=== PATIENT | female | born 1950 ===

== ENCOUNTER 2021-08-01 15:44 | Inpatient (IN) | payer MEDICARE ==
[2021-08-01] MEDS ORDERED: Midazolam HCl 2 mg/2 ml Vial ONE (15:58)
[2021-08-01] MEDS ORDERED: Rocuronium Bromide 10 MG/ML (10ML VIAL) ONE (15:59)
[2021-08-01] MEDS ORDERED: Norepinephrine 8 MG/0.9% NS 250 ML ONE (16:21)
[2021-08-01] MEDS ORDERED: Cefepime 2 GM VIAL ONE (16:43)
[2021-08-01] MEDS ORDERED: Vancomycin 1 GM/200 ML BAG ONE (16:43)
[2021-08-01 16:48] LABS: Analyzer IN Cardio ER; Base Excess (BEa) -23.5 mEq/L (-2.0 to +3.0); Calcium, Ionized (arterial) 1.14 mmol/L (1.12-1.30); Carboxyhemoglobin (COHb) 0.2 gm% (0.0-3.0); Hemoglobin (Hb) 10.5 g/dL (12.0-16.0); O2 Tension (PaO2), arterial 103.7 mmHg (> 80.0); Potassium - ABG Lab 4.91 mmol/L (3.70-5.30)
[2021-08-01 16:53] LABS: CO2 Tension 23.8 mmHg (35.0-45.0); Puncture Site LBA; pH, Arterial 7.02 (7.35-7.45)
[2021-08-01 16:53] LABS: #Lymphocytes 0.7 thou/uL (1.20-3.40); #Monocytes 0.6 thou/uL (0.11-0.59); #Neutrophils 7.6 thou/uL (1.40-6.50); %Eosinophils 0.1 % (0.0-10.0); %Lymphocytes 8.4 % (21.0-51.0); %Monocytes 6.3 % (0.0-10.0); %Neutrophils 85.2 % (42.0-75.0); Hemoglobin 11.1 g/dL (12.0-16.0); Mean Corpuscular HGB CONC 33.8 g/dL (32.0-36.0); Mean Corpuscular Hemoglobin 38.1 pg (27.0-31.0); Platelet Count 205 thou/uL (130-400); RBC Distribution Width 12.1 % (11.5-14.5); Red Blood Cell (RBC) Count 2.92 mill/uL (4.20-5.40); White Blood Cell (WBC) Count 8.9 thou/uL (4.8-10.8)
[2021-08-01] MEDS ORDERED: Dexamethasone 4 mg/ml Vial ONE (16:56)
[2021-08-01] MEDS ORDERED: Sodium Bicarb 50 MEQ/50 ML Abboject 8.4% SYRINGE ONE (16:56)
[2021-08-01] MEDS ORDERED: Propofol 1,000 MG/100 ML VIAL IV ONE (17:00)
[2021-08-01 17:09] LABS: MDiff Complete? YES; Macrocytosis SLIGHT = 6-15 cells (100X) (0-5/hpf); Platelet Morphology Comment Appears Adequate
[2021-08-01 17:48] LABS: Bacteria/HPF 1+ HPF (None Seen); Bilirubin Negative (Negative); Blood, Urine Negative (Negative); Clarity Cloudy (Clear); Glucose, Urine (Dipstick) Normal (Negative); Ketone, Urine Negative (Negative); Leukocyte Negative Leu/uL (Negative); Nitrite Negative (Negative); Protein, Urine (Dipstick) 50 mg/dL (Neg-Trace); RBC/HPF 0-3 HPF (0-3); Specific Gravity, Urine 1.022 (1.002-1.036); Squamous Epithelial 0-3 HPF (0-3); Urobilinogen Normal mg/dL (Less than 2)
[2021-08-01] MEDS ORDERED: Diltiazem 125 MG/25 ML ONE (18:30)
[2021-08-01 19:46] LABS: ALT (SGPT) 14 U/L (8-55); AST (SGOT) 26 U/L (5-34); Albumin 3.1 g/dL (3.4-4.8); Alkaline Phosphatase 69 U/L (40-110); BUN (Urea Nitrogen) 114 mg/dL (9.8-20.1); Bilirubin, Total 0.4 mg/dL (0.2-1.2); Calc. Creatinine Clearance 0 mL/min (70-130); Calcium 8.2 mg/dL (7.8-10.44); Chloride 124 mmol/L (98-107); Globulin 3.3 g/dL (2.4-3.5); Glucose 133 mg/dL (80-115); Potassium 5.3 mmol/L (3.5-5.1); Protein, Total 6.4 g/dL (5.8-8.1); Sodium 146 mmol/L (136-145)
[2021-08-01 19:52] LABS: Carbon Dioxide Less than 8 mmol/L (23-31)
[2021-08-01 20:09] LABS: Lactic Acid 4.2 mmol/L (0.5-2.2)
[2021-08-01 20:11] LABS: Troponin I 0.145 ng/mL (< 0.028)
[2021-08-01] MEDS ORDERED: Sodium Chloride 0.9% 500 ML IV SCH (20:45)
[2021-08-01] MEDS ORDERED: Propofol 1,000 MG/100 ML VIAL IV PRN (20:45)
[2021-08-01] MEDS ORDERED: Sodium Bicarb 50 MEQ/50 ML Abboject 8.4% SYRINGE IVP SCH (20:45)
[2021-08-01] MEDS ORDERED: Diltiazem HCl 125 MG, Admixture Fee 1 EACH in Sodium Chloride 0.9% 100 ML IVPB SCH (20:45)
[2021-08-01] MEDS ORDERED: Sodium Bicarb 50 MEQ/50 ML VIAL IVP SCH ×2 (20:45→21:15)
[2021-08-01] MEDS ORDERED: Sodium Bicarbonate 150 MEQ in Dextrose 5% in Water 1,000 ML IV SCH (20:45)
[2021-08-01] MEDS ORDERED: Norepinephrine 8 MG/0.9% NS 250 ML IVPB SCH (20:45)
[2021-08-01 20:47] LABS: Actual Bicarbonate (HCO3a) 6.8 mEq/L (22-28); Analyzer IN Cardio ER; Base Excess (BEa) -22.5 mEq/L (-2.0 to +3.0); Calcium, Ionized (arterial) 1.12 mmol/L (1.12-1.30); Carboxyhemoglobin (COHb) 0.4 gm% (0.0-3.0); Hemoglobin (Hb) 11.6 g/dL (12.0-16.0); O2 Tension (PaO2), arterial 64.8 mmHg (> 80.0); Potassium - ABG Lab 5.55 mmol/L (3.70-5.30)
[2021-08-01 20:53] LABS: pH, Arterial 7.04 (7.35-7.45)
[2021-08-01 20:54] LABS: CO2 Tension 25.8 mmHg (35.0-45.0)
[2021-08-01 20:56] LABS: Puncture Site RRA
[2021-08-01] MEDS ORDERED: Sodium Bicarb 50 MEQ/50 ML VIAL ONE (21:10)
[2021-08-01] MEDS: Amiodarone 450 MG, Admixture Fee 1 EACH in Dextrose 5% in Water 250 ML IVPB SCH (21:24)
[2021-08-01] MEDS: Fentanyl CADD 100 ML IV SCH (21:27)
[2021-08-01] MEDS ORDERED: Amiodarone 150 MG, Admixture Fee 1 EACH in Dextrose 5% in Water 100 ML IVPB SCH (21:30)
[2021-08-01] MEDS ORDERED: Propofol BOLUS 1,000 MG/100 ML VIAL IV PRN (21:30)
[2021-08-01] MEDS ORDERED: DISCONTINUE PREVIOUS NARCOTIC PAIN MEDICATIONS AND BENZODIAZEPINES FS SCH (21:30)
[2021-08-01] MEDS ORDERED: Fentanyl BOLUS 250 ML IVPB PRN (21:30)
[2021-08-01] MEDS ORDERED: Sodium Chloride 0.9% 1,000 ML IV SCH (21:30)
[2021-08-01] MEDS ORDERED: Morphine 4 MG/ML VIAL SLOW IVP PRN (21:30)
[2021-08-01] MEDS: Sodium Chloride 0.9% 1,000 ML IV SCH (21:58)
[2021-08-01] MEDS ORDERED: Acetaminophen 325 MG TAB PO PRN (22:09)
[2021-08-01] MEDS ORDERED: Ondansetron ODT 4 MG TAB PO PRN (22:09)
[2021-08-01] MEDS ORDERED: Ondansetron PF 4 MG/2 ML Vial IVP PRN (22:09)
[2021-08-01] MEDS: Vasopressin 20 UNIT, Admixture Fee 1 EACH in Sodium Chloride 0.9% 50 ML IV SCH (22:09)
[2021-08-01] MEDS ORDERED: Acetaminophen 650 MG Suppository PR PRN (22:09)
[2021-08-01 22:25] LABS: Lactic Acid 4.9 mmol/L (0.5-2.2)
[2021-08-01 22:26] LABS: Anion Gap 22 mmol/L (10-20); BUN (Urea Nitrogen) 96 mg/dL (9.8-20.1); Calc. Creatinine Clearance 0 mL/min (70-130); Calcium 6.7 mg/dL (7.8-10.44); Carbon Dioxide 14 mmol/L (23-31); Chloride 121 mmol/L (98-107); Glucose 338 mg/dL (80-115); Potassium 4.3 mmol/L (3.5-5.1); Sodium 153 mmol/L (136-145)
[2021-08-01 22:44] LABS: Troponin I 0.165 ng/mL (< 0.028)
[2021-08-02] MEDS ORDERED: Heparin 10,000 UNITS/ 10 ML VIAL SLOW IVP SCH (00:30)
[2021-08-02] MEDS ORDERED: Heparin 25,000 units/D5W 500 ML IVPB SCH (00:30)
[2021-08-02 01:14] LABS: Hemoglobin 10.1 g/dL (12.0-16.0); Platelet Count 192 thou/uL (130-400)
[2021-08-02] MEDS ORDERED: HumaLOG 300 UNITS/3 ML VIAL SC PRN ×2 (01:37)
[2021-08-02] MEDS ORDERED: Dextrose 5% in Water 1,000 ML IV PRN (01:37)
[2021-08-02] MEDS: Lorazepam 2 MG/ML VIAL SLOW IVP PRN ×6 (01:40→22:44)
[2021-08-02 01:43] LABS: Lactic Acid 5.5 mmol/L (0.5-2.2)
[2021-08-02] MEDS ORDERED: Dextrose 5% in Water 1,000 ML IV SCH (01:45)
[2021-08-02] MEDS ORDERED: Sodium Bicarbonate 150 MEQ in Dextrose 5% in Water 1,000 ML IV SCH (01:45)
[2021-08-02] MEDS ORDERED: Sodium Bicarbonate 150 MEQ in Sterile Water Injection 1,000 ML IV SCH (02:15)
[2021-08-02] MEDS ORDERED: Pharmacy to Dose : CEFEPIME IVPB PRN (02:54)
[2021-08-02] MEDS ORDERED: Vancomycin HCl 500 MG in Sodium Chloride 0.9% 100 ML IVPB SCH ×2 (03:00→23:59)
[2021-08-02] MEDS: Norepinephrine 16 MG in Dextrose 5% in Water 234 ML IVPB PRN (03:08)
[2021-08-02] MEDS ORDERED: VANCOMYCIN 1.25 GM/250 ML BAG 1.25 GM in Premix Bag 1 BAG IVPB SCH (04:00)
[2021-08-02] MEDS: Amiodarone 450 MG, Admixture Fee 1 EACH in Dextrose 5% in Water 250 ML IVPB SCH ×2 (04:52→14:02)
[2021-08-02] MEDS: Sodium Chloride 0.9% 1,000 ML IV SCH (04:52)
[2021-08-02] MEDS: Vasopressin 20 UNIT, Admixture Fee 1 EACH in Sodium Chloride 0.9% 50 ML IV SCH ×2 (04:52→14:02)
[2021-08-02 05:20] LABS: Anion Gap 21 mmol/L (10-20); BUN (Urea Nitrogen) 82 mg/dL (9.8-20.1); Calc. Creatinine Clearance 19 mL/min (70-130); Calcium 6.7 mg/dL (7.8-10.44); Carbon Dioxide 19 mmol/L (23-31); Chloride 112 mmol/L (98-107); Glucose 537 mg/dL (80-115); Potassium 3.2 mmol/L (3.5-5.1); Sodium 149 mmol/L (136-145)
[2021-08-02 05:42] LABS: Lactic Acid 3.6 mmol/L (0.5-2.2)
[2021-08-02 06:04] LABS: Band 13 % (5-11); Hemoglobin 9.9 g/dL (12.0-16.0); Lymphocytes 9 % (21-51); MDiff Complete? YES; Macrocytosis SLIGHT = 6-15 cells (100X) (0-5/hpf); Mean Corpuscular HGB CONC 34.2 g/dL (32.0-36.0); Mean Corpuscular Hemoglobin 37.5 pg (27.0-31.0); Mean Platelet Volume 9.3 fL (7.4-10.4); Monocytes 3 % (0-10); Neutrophil 75 % (42-75); Platelet Count 189 thou/uL (130-400); RBC Distribution Width 12.1 % (11.5-14.5); Red Blood Cell (RBC) Count 2.63 mill/uL (4.20-5.40); White Blood Cell (WBC) Count 7.6 thou/uL (4.8-10.8)
[2021-08-02] MEDS: HumaLOG 300 UNITS/3 ML VIAL SC PRN ×3 (06:38→16:09)
[2021-08-02 07:50] LABS: Actual Bicarbonate (HCO3a) 23.5 mEq/L (22-28); Base Excess (BEa) 1.7 mEq/L (-2.0 to +3.0); CO2 Tension 27.1 mmHg (35.0-45.0); Calcium, Ionized (arterial) 0.91 mmol/L (1.12-1.30); Carboxyhemoglobin (COHb) 0.8 gm% (0.0-3.0); Hemoglobin (Hb) 9.4 g/dL (12.0-16.0); Potassium - ABG Lab 2.88 mmol/L (3.70-5.30)
[2021-08-02 07:59] LABS: ALV-art Gradient 458.975 mmHg (0-20); O2 Tension (PaO2), arterial 41.9 mmHg (> 80.0); pH, Arterial 7.56 (7.35-7.45)
[2021-08-02 08:22] LABS: PTT Greater than 250.0 sec (22.9-36.1)
[2021-08-02] MEDS ORDERED: Heparin 5,000 UNITS/ML VIAL SC SCH ×2 (09:00→15:00)
[2021-08-02] MEDS ORDERED: FLU VACC QS2021-22(65YR UP)/PF 240 MCG/0.7 ML SYRINGE IM ONE (09:00)
[2021-08-02] MEDS ORDERED: Lantus 1000 UNITS/10 ML VIAL SC SCH (09:00)
[2021-08-02] MEDS ORDERED: Enoxaparin Sodium 30 MG/0.3 ML SYRINGE SC SCH (09:00)
[2021-08-02] MEDS: Sodium Chloride 0.45% 1,000 ML IV SCH (10:19)
[2021-08-02] MEDS: Vecuronium 10 MG VIAL IV PRN ×3 (10:20→22:44)
[2021-08-02] MEDS: Ascorbic Acid 500 mg Chewable Tablet PO SCH (10:21)
[2021-08-02] MEDS: Cholecalciferol (Vitamin D3) 400 UNITS TAB PO SCH (10:21)
[2021-08-02] MEDS: Dexamethasone 10 MG/ML VIAL SLOW IVP SCH (10:21)
[2021-08-02] MEDS: Zinc Sulfate 220 MG CAP PO SCH (10:21)
[2021-08-02] MEDS: Pantoprazole 40 MG VIAL IVP SCH (10:21)
[2021-08-02 11:47] LABS: SARS-CoV-2 PCR by NAA DETECTED (NotDetected)
[2021-08-02] MEDS ORDERED: Potassium Chloride 40 MEQ in Premix Bag 1 BAG IVPB SCH (12:30)
[2021-08-02] MEDS: Lantus 1000 UNITS/10 ML VIAL SC SCH ×2 (13:54→20:59)
[2021-08-02] MEDS: Cefepime 1 GM in Sodium Chloride 0.9% 100 ML IVPB SCH (16:19)
[2021-08-02] MEDS: Fentanyl CADD 100 ML IV SCH (18:01)
[2021-08-02] MEDS ORDERED: Electrolyte Replacement Protocol 1 EACH FS SCH (19:30)
[2021-08-02] MEDS ORDERED: Enoxaparin Sodium 40 MG/0.4 ML SYRINGE SC SCH (21:00)
[2021-08-02] MEDS ORDERED: VANCOMYCIN IVPB SCH (22:00)
[2021-08-02 22:55] LABS: Vancomycin, Random 16.4 ug/mL (See Comment)
[2021-08-02 23:03] LABS: Anion Gap 17 mmol/L (10-20); BUN (Urea Nitrogen) 60 mg/dL (9.8-20.1); Calc. Creatinine Clearance 37 mL/min (70-130); Carbon Dioxide 24 mmol/L (23-31); Chloride 113 mmol/L (98-107); Glucose 132 mg/dL (80-115); Magnesium 1.4 mg/dL (1.6-2.6); Potassium 3.2 mmol/L (3.5-5.1); Sodium 151 mmol/L (136-145)
[2021-08-03] MEDS ORDERED: Potassium Bicarbonate/Cit Ac 20 MEQ TAB PER TUBE SCH (01:30)
[2021-08-03] MEDS ORDERED: Potassium Chloride 20 MEQ in Premix Bag 1 BAG IVPB SCH (01:30)
[2021-08-03] MEDS ORDERED: Magnesium Sulfate 4 GM in Sodium Chloride 0.9% 250 ML 250 ML IVPB SCH (01:45)
[2021-08-03] MEDS: Amiodarone 450 MG, Admixture Fee 1 EACH in Dextrose 5% in Water 250 ML IVPB SCH (02:30)
[2021-08-03] MEDS: Norepinephrine 16 MG in Dextrose 5% in Water 234 ML IVPB PRN (02:30)
[2021-08-03] MEDS ORDERED: Sterile Water 10 ML ONE (04:20)
[2021-08-03] MEDS ORDERED: Bacteriostatic Normal Saline 30 ML VIAL ONE (04:20)
[2021-08-03] MEDS: Vecuronium 10 MG VIAL IV PRN ×2 (04:23→14:12)
[2021-08-03] MEDS: Lorazepam 2 MG/ML VIAL SLOW IVP PRN ×3 (04:23→14:12)
[2021-08-03] MEDS: Sodium Chloride 0.45% 1,000 ML IV SCH (06:22)
[2021-08-03 06:30] LABS: Anion Gap 16 mmol/L (10-20); BUN (Urea Nitrogen) 52 mg/dL (9.8-20.1); Calc. Creatinine Clearance 44 mL/min (70-130); Calcium 6.9 mg/dL (7.8-10.44); Carbon Dioxide 24 mmol/L (23-31); Chloride 113 mmol/L (98-107); Glucose 141 mg/dL (80-115); Potassium 3.8 mmol/L (3.5-5.1); Sodium 149 mmol/L (136-145)
[2021-08-03] MEDS: Fentanyl CADD 100 ML IV SCH (07:04)
[2021-08-03 08:10] LABS: Actual Bicarbonate (HCO3a) 25.3 mEq/L (22-28); Base Excess (BEa) 5.3 mEq/L (-2.0 to +3.0); Calcium, Ionized (arterial) 0.98 mmol/L (1.12-1.30); Carboxyhemoglobin (COHb) 0.6 gm% (0.0-3.0); Hemoglobin (Hb) 9.6 g/dL (12.0-16.0); O2 Tension (PaO2), arterial 83.9 mmHg (> 80.0); Potassium - ABG Lab 3.64 mmol/L (3.70-5.30)
[2021-08-03 08:11] LABS: ALV-art Gradient 172.675 mmHg (0-20); CO2 Tension 22.9 mmHg (35.0-45.0); Puncture Site LRA; pH, Arterial 7.66 (7.35-7.45)
[2021-08-03] MEDS: Dexamethasone 10 MG/ML VIAL SLOW IVP SCH (08:59)
[2021-08-03] MEDS: Zinc Sulfate 220 MG CAP PO SCH (08:59)
[2021-08-03] MEDS: Ascorbic Acid 500 mg Chewable Tablet PO SCH (08:59)
[2021-08-03] MEDS: Pantoprazole 40 MG VIAL IVP SCH (08:59)
[2021-08-03] MEDS: Cholecalciferol (Vitamin D3) 400 UNITS TAB PO SCH (08:59)
[2021-08-03] MEDS: Lantus 1000 UNITS/10 ML VIAL SC SCH ×2 (09:00→22:36)
[2021-08-03 09:09] LABS: Magnesium 2.9 mg/dL (1.6-2.6)
[2021-08-03] MEDS: HumaLOG 300 UNITS/3 ML VIAL SC PRN ×2 (10:10→16:37)
[2021-08-03] MEDS: Cefepime 1 GM in Sodium Chloride 0.9% 100 ML IVPB SCH (16:18)
[2021-08-03] MEDS: Enoxaparin Sodium 40 MG/0.4 ML SYRINGE SC SCH (20:37)
[2021-08-03] MEDS: fentaNYL Citrate-0.9 % NaCl/PF 100 ML IVPB SCH (20:38)
[2021-08-03 23:10] LABS: Vancomycin, Random 12.8 ug/mL (See Comment)
[2021-08-04] MEDS: Vancomycin HCl 750 MG in Sodium Chloride 0.9% 250 ML 250 ML IVPB SCH (00:28)
[2021-08-04] MEDS: Sodium Chloride 0.45% 1,000 ML IV SCH ×2 (00:34→21:18)
[2021-08-04] MEDS: Propofol 1,000 MG/100 ML VIAL IV PRN ×2 (04:57→17:58)
[2021-08-04 05:39] LABS: Anion Gap 14 mmol/L (10-20); BUN (Urea Nitrogen) 50 mg/dL (9.8-20.1); Calc. Creatinine Clearance 57 mL/min (70-130); Calcium 7.4 mg/dL (7.8-10.44); Carbon Dioxide 25 mmol/L (23-31); Chloride 110 mmol/L (98-107); Glucose 156 mg/dL (80-115); Potassium 3.8 mmol/L (3.5-5.1); Sodium 145 mmol/L (136-145)
[2021-08-04 05:41] LABS: Band 20 % (5-11); Hemoglobin 9.2 g/dL (12.0-16.0); Lymphocytes 2 % (21-51); MDiff Complete? YES; Mean Corpuscular HGB CONC 32.8 g/dL (32.0-36.0); Mean Corpuscular Hemoglobin 37.3 pg (27.0-31.0); Mean Platelet Volume 9.9 fL (7.4-10.4); Monocytes 1 % (0-10); Neutrophil 77 % (42-75); Platelet Count 166 thou/uL (130-400); Platelet Morphology Comment Appears Adequate; Red Blood Cell (RBC) Count 2.48 mill/uL (4.20-5.40); White Blood Cell (WBC) Count 17.2 thou/uL (4.8-10.8)
[2021-08-04] MEDS: fentaNYL Citrate-0.9 % NaCl/PF 100 ML IVPB SCH ×2 (06:57→21:20)
[2021-08-04] MEDS ORDERED: Potassium Chloride 20 MEQ TAB PO SCH (08:15)
[2021-08-04] MEDS: Ascorbic Acid 500 mg Chewable Tablet PO SCH (08:37)
[2021-08-04] MEDS: Cholecalciferol (Vitamin D3) 400 UNITS TAB PO SCH (08:37)
[2021-08-04] MEDS: Cefepime 2 GM in Sodium Chloride 0.9% 100 ML IVPB SCH ×2 (08:37→21:18)
[2021-08-04] MEDS: Zinc Sulfate 220 MG CAP PO SCH (08:37)
[2021-08-04] MEDS: Amiodarone 200 MG TAB PO SCH (08:37)
[2021-08-04] MEDS: Dexamethasone 10 MG/ML VIAL SLOW IVP SCH (08:37)
[2021-08-04] MEDS: Enoxaparin Sodium 40 MG/0.4 ML SYRINGE SC SCH ×2 (08:38→21:19)
[2021-08-04] MEDS: Pantoprazole 40 MG VIAL IVP SCH (08:38)
[2021-08-04] MEDS: Lantus 1000 UNITS/10 ML VIAL SC SCH ×2 (08:39→21:23)
[2021-08-04] MEDS: Vecuronium 10 MG VIAL IV PRN (12:27)
[2021-08-04] MEDS: HumaLOG 300 UNITS/3 ML VIAL SC PRN (16:00)
[2021-08-05] MEDS: Vancomycin HCl 750 MG in Sodium Chloride 0.9% 250 ML 250 ML IVPB SCH (00:51)
[2021-08-05] MEDS: Propofol 1,000 MG/100 ML VIAL IV PRN ×4 (03:10→22:04)
[2021-08-05 05:51] LABS: Band 8 % (5-11); Hemoglobin 8.9 g/dL (12.0-16.0); Hypochromia SLIGHT = 6-15 cells (100X) (0-5/hpf); MDiff Complete? YES; Macrocytosis SLIGHT = 6-15 cells (100X) (0-5/hpf); Mean Corpuscular HGB CONC 32.3 g/dL (32.0-36.0); Mean Corpuscular Hemoglobin 37.2 pg (27.0-31.0); Mean Platelet Volume 10.1 fL (7.4-10.4); Monocytes 18 % (0-10); Neutrophil 73 % (42-75); Platelet Count 177 thou/uL (130-400); Platelet Morphology Comment Appears Adequate; RBC Distribution Width 12.3 % (11.5-14.5); Reactive Lymphocytes 1 % (0-10); Red Blood Cell (RBC) Count 2.39 mill/uL (4.20-5.40); White Blood Cell (WBC) Count 20.9 thou/uL (4.8-10.8)
[2021-08-05 06:02] LABS: Anion Gap 11 mmol/L (10-20); BUN (Urea Nitrogen) 41 mg/dL (9.8-20.1); CRP (Inflammatory) 1.05 mg/dL (= or < 0.5); Calc. Creatinine Clearance 70 mL/min (70-130); Calcium 7.6 mg/dL (7.8-10.44); Carbon Dioxide 26 mmol/L (23-31); Chloride 110 mmol/L (98-107); Glucose 123 mg/dL (80-115); Sodium 142 mmol/L (136-145)
[2021-08-05] MEDS: Dexamethasone 10 MG/ML VIAL SLOW IVP SCH (08:37)
[2021-08-05] MEDS: Cefepime 2 GM in Sodium Chloride 0.9% 100 ML IVPB SCH ×2 (08:37→21:28)
[2021-08-05] MEDS: Enoxaparin Sodium 40 MG/0.4 ML SYRINGE SC SCH ×2 (08:37→21:28)
[2021-08-05] MEDS: Cholecalciferol (Vitamin D3) 400 UNITS TAB PO SCH (08:38)
[2021-08-05] MEDS: Furosemide 40 MG/4 ML VIAL SLOW IVP SCH (08:38)
[2021-08-05] MEDS: Pantoprazole 40 MG VIAL IVP SCH (08:38)
[2021-08-05] MEDS: Zinc Sulfate 220 MG CAP PO SCH (08:38)
[2021-08-05] MEDS: Ascorbic Acid 500 mg Chewable Tablet PO SCH (08:38)
[2021-08-05] MEDS: Lantus 1000 UNITS/10 ML VIAL SC SCH ×2 (08:39→21:29)
[2021-08-05] MEDS: Amiodarone 200 MG TAB PO SCH (08:40)
[2021-08-05 09:55] LABS: Actual Bicarbonate (HCO3a) 26.7 mEq/L (22-28); Base Excess (BEa) 1.1 mEq/L (-2.0 to +3.0); CO2 Tension 47.3 mmHg (35.0-45.0); Calcium, Ionized (arterial) 1.15 mmol/L (1.12-1.30); Carboxyhemoglobin (COHb) 0.7 gm% (0.0-3.0); Hemoglobin (Hb) 9.2 g/dL (12.0-16.0); O2 Tension (PaO2), arterial 61.3 mmHg (> 80.0); Potassium - ABG Lab 4.88 mmol/L (3.70-5.30); pH, Arterial 7.37 (7.35-7.45)
[2021-08-05 09:59] LABS: ALV-art Gradient 236.075 mmHg (0-20); Puncture Site RRA
[2021-08-05] MEDS: Lorazepam 2 MG/ML VIAL SLOW IVP PRN ×2 (12:05→22:04)
[2021-08-05] MEDS: fentaNYL Citrate-0.9 % NaCl/PF 100 ML IVPB SCH (16:00)
[2021-08-05] MEDS: Sodium Chloride 0.45% 1,000 ML IV SCH (16:01)
[2021-08-05] MEDS: HumaLOG 300 UNITS/3 ML VIAL SC PRN (16:02)
[2021-08-05 23:38] LABS: Vancomycin, Trough 15.7 ug/mL
[2021-08-06 00:55] LABS: Platelet Count 167 thou/uL (130-400)
[2021-08-06] MEDS: Vancomycin HCl 750 MG in Sodium Chloride 0.9% 250 ML 250 ML IVPB SCH (01:04)
[2021-08-06 05:37] LABS: Band 3 % (5-11); Lymphocytes 4 % (21-51); MDiff Complete? YES; Mean Corpuscular HGB CONC 32.4 g/dL (32.0-36.0); Mean Corpuscular Hemoglobin 37.3 pg (27.0-31.0); Mean Platelet Volume 10.1 fL (7.4-10.4); Metamyelocyte 1 % (0-0); Monocytes 4 % (0-10); Neutrophil 88 % (42-75); Platelet Count 166 thou/uL (130-400); Platelet Morphology Comment Appears Adequate; RBC Distribution Width 12.2 % (11.5-14.5); White Blood Cell (WBC) Count 14.1 thou/uL (4.8-10.8)
[2021-08-06 05:49] LABS: Anion Gap 11 mmol/L (10-20); BUN (Urea Nitrogen) 34 mg/dL (9.8-20.1); Calc. Creatinine Clearance 73 mL/min (70-130); Calcium 7.9 mg/dL (7.8-10.44); Carbon Dioxide 28 mmol/L (23-31); Chloride 107 mmol/L (98-107); Glucose 125 mg/dL (80-115); Potassium 4.6 mmol/L (3.5-5.1); Sodium 141 mmol/L (136-145)
[2021-08-06] MEDS: Propofol 1,000 MG/100 ML VIAL IV PRN ×3 (06:39→23:48)
[2021-08-06 07:33] LABS: Actual Bicarbonate (HCO3a) 30.1 mEq/L (22-28); Base Excess (BEa) 3.5 mEq/L (-2.0 to +3.0); CO2 Tension 53.2 mmHg (35.0-45.0); Calcium, Ionized (arterial) 1.16 mmol/L (1.12-1.30); O2 Tension (PaO2), arterial 82.2 mmHg (> 80.0); Potassium - ABG Lab 4.75 mmol/L (3.70-5.30); pH, Arterial 7.37 (7.35-7.45)
[2021-08-06 07:41] LABS: Puncture Site RRA
[2021-08-06] MEDS: fentaNYL Citrate-0.9 % NaCl/PF 100 ML IVPB SCH (08:44)
[2021-08-06] MEDS: Enoxaparin Sodium 40 MG/0.4 ML SYRINGE SC SCH ×2 (08:47→20:19)
[2021-08-06] MEDS: Cefepime 2 GM in Sodium Chloride 0.9% 100 ML IVPB SCH ×2 (08:48→20:19)
[2021-08-06] MEDS: Pantoprazole 40 MG VIAL IVP SCH (08:53)
[2021-08-06] MEDS: Furosemide 40 MG/4 ML VIAL SLOW IVP SCH (08:54)
[2021-08-06] MEDS: Zinc Sulfate 220 MG CAP PO SCH (08:55)
[2021-08-06] MEDS: Amiodarone 200 MG TAB PO SCH (08:55)
[2021-08-06] MEDS: Ascorbic Acid 500 mg Chewable Tablet PO SCH (08:55)
[2021-08-06] MEDS: Cholecalciferol (Vitamin D3) 400 UNITS TAB PO SCH (08:56)
[2021-08-06] MEDS: Lantus 1000 UNITS/10 ML VIAL SC SCH ×2 (08:57→20:23)
[2021-08-06] MEDS ORDERED: Levothyroxine Sodium 75 MCG TAB PO SCH (09:00)
[2021-08-06] MEDS: Citalopram 10 MG TAB PER TUBE SCH (10:09)
[2021-08-06] MEDS: Dexamethasone 10 MG/ML VIAL SLOW IVP SCH (10:10)
[2021-08-06] MEDS: Sodium Chloride 0.45% 1,000 ML IV SCH (13:48)
[2021-08-07] MEDS: fentaNYL Citrate-0.9 % NaCl/PF 100 ML IVPB SCH ×2 (02:55→20:41)
[2021-08-07 04:03] LABS: Band 10 % (5-11); Hemoglobin 8.8 g/dL (12.0-16.0); Hypochromia SLIGHT = 6-15 cells (100X) (0-5/hpf); Lymphocytes 9 % (21-51); MDiff Complete? YES; Macrocytosis SLIGHT = 6-15 cells (100X) (0-5/hpf); Mean Corpuscular HGB CONC 32.3 g/dL (32.0-36.0); Mean Corpuscular Hemoglobin 37.3 pg (27.0-31.0); Mean Platelet Volume 10.1 fL (7.4-10.4); Monocytes 11 % (0-10); Neutrophil 70 % (42-75); Platelet Count 152 thou/uL (130-400); Platelet Morphology Comment Appears Adequate; RBC Distribution Width 11.9 % (11.5-14.5); Red Blood Cell (RBC) Count 2.37 mill/uL (4.20-5.40); White Blood Cell (WBC) Count 11.5 thou/uL (4.8-10.8)
[2021-08-07 04:16] LABS: Anion Gap 11 mmol/L (10-20); BUN (Urea Nitrogen) 34 mg/dL (9.8-20.1); Calc. Creatinine Clearance 72 mL/min (70-130); Calcium 8.2 mg/dL (7.8-10.44); Carbon Dioxide 31 mmol/L (23-31); Chloride 104 mmol/L (98-107); Glucose 93 mg/dL (80-115); Potassium 4.7 mmol/L (3.5-5.1); Sodium 141 mmol/L (136-145)
[2021-08-07] MEDS: Levothyroxine Sodium 75 MCG TAB PO SCH (06:03)
[2021-08-07] MEDS: Propofol 1,000 MG/100 ML VIAL IV PRN (07:59)
[2021-08-07] MEDS: Enoxaparin Sodium 40 MG/0.4 ML SYRINGE SC SCH ×2 (09:05→20:15)
[2021-08-07] MEDS: Cefepime 2 GM in Sodium Chloride 0.9% 100 ML IVPB SCH ×2 (09:07→20:15)
[2021-08-07] MEDS: Pantoprazole 40 MG VIAL IVP SCH (09:08)
[2021-08-07] MEDS ORDERED: Furosemide 20 MG/2 ML VIAL SLOW IVP SCH (09:15)
[2021-08-07] MEDS: Dexamethasone 10 MG/ML VIAL SLOW IVP SCH (09:15)
[2021-08-07] MEDS: Ascorbic Acid 500 mg Chewable Tablet PO SCH (09:19)
[2021-08-07] MEDS: Zinc Sulfate 220 MG CAP PO SCH (09:19)
[2021-08-07] MEDS: Amiodarone 200 MG TAB PO SCH (09:19)
[2021-08-07] MEDS: Citalopram 10 MG TAB PER TUBE SCH (09:19)
[2021-08-07] MEDS: Cholecalciferol (Vitamin D3) 400 UNITS TAB PO SCH (09:19)
[2021-08-07] MEDS: Lantus 1000 UNITS/10 ML VIAL SC SCH ×2 (09:20→20:32)
[2021-08-07] MEDS: Lorazepam 2 MG/ML VIAL SLOW IVP PRN ×2 (11:50→18:59)
[2021-08-07] MEDS: Sodium Chloride 0.45% 1,000 ML IV SCH (13:10)
[2021-08-08 00:33] LABS: Hemoglobin 8.1 g/dL (12.0-16.0); Platelet Count 140 thou/uL (130-400)
[2021-08-08] MEDS: Propofol 1,000 MG/100 ML VIAL IV PRN ×3 (01:53→20:00)
[2021-08-08] MEDS: Lorazepam 2 MG/ML VIAL SLOW IVP PRN (03:18)
[2021-08-08 04:43] LABS: Band 2 % (5-11); Lymphocytes 6 % (21-51); MDiff Complete? YES; Mean Corpuscular HGB CONC 32.2 g/dL (32.0-36.0); Mean Corpuscular Hemoglobin 37.1 pg (27.0-31.0); Mean Platelet Volume 10.1 fL (7.4-10.4); Metamyelocyte 1 % (0-0); Monocytes 6 % (0-10); Neutrophil 85 % (42-75); Platelet Count 144 thou/uL (130-400); Platelet Morphology Comment Appears Adequate; RBC Distribution Width 11.8 % (11.5-14.5); Red Blood Cell (RBC) Count 2.15 mill/uL (4.20-5.40); White Blood Cell (WBC) Count 8.2 thou/uL (4.8-10.8)
[2021-08-08 04:52] LABS: Anion Gap 11 mmol/L (10-20); BUN (Urea Nitrogen) 36 mg/dL (9.8-20.1); Calc. Creatinine Clearance 72 mL/min (70-130); Calcium 8.1 mg/dL (7.8-10.44); Carbon Dioxide 31 mmol/L (23-31); Chloride 103 mmol/L (98-107); Glucose 92 mg/dL (80-115); Potassium 4.6 mmol/L (3.5-5.1); Sodium 140 mmol/L (136-145)
[2021-08-08] MEDS: Levothyroxine Sodium 75 MCG TAB PO SCH (05:48)
[2021-08-08] MEDS ORDERED: Furosemide 20 MG/2 ML VIAL SLOW IVP SCH (09:00)
[2021-08-08] MEDS: Zinc Sulfate 220 MG CAP PO SCH (09:11)
[2021-08-08] MEDS: Pantoprazole 40 MG VIAL IVP SCH (09:11)
[2021-08-08] MEDS: Cholecalciferol (Vitamin D3) 400 UNITS TAB PO SCH (09:11)
[2021-08-08] MEDS: Dexamethasone 10 MG/ML VIAL SLOW IVP SCH (09:11)
[2021-08-08] MEDS: Citalopram 10 MG TAB PER TUBE SCH (09:11)
[2021-08-08] MEDS: Amiodarone 200 MG TAB PO SCH (09:11)
[2021-08-08] MEDS: Enoxaparin Sodium 40 MG/0.4 ML SYRINGE SC SCH ×2 (09:11→20:01)
[2021-08-08] MEDS: Ascorbic Acid 500 mg Chewable Tablet PO SCH (09:11)
[2021-08-08] MEDS: Lantus 1000 UNITS/10 ML VIAL SC SCH (09:12)
[2021-08-08] MEDS: Cefepime 2 GM in Sodium Chloride 0.9% 100 ML IVPB SCH ×2 (09:12→20:00)
[2021-08-08] MEDS: Furosemide 20 MG/2 ML VIAL SLOW IVP SCH (09:34)
[2021-08-08] MEDS: Dextrose 50% Abboject 50 ML SYRINGE SLOW IVP PRN (10:24)
[2021-08-08] MEDS: Potassium Chloride 20 MEQ TAB PO SCH (17:15)
[2021-08-08] MEDS ORDERED: Furosemide 40 MG/4 ML VIAL SLOW IVP SCH (18:00)
[2021-08-08] MEDS: fentaNYL Citrate-0.9 % NaCl/PF 100 ML IVPB SCH (18:06)
[2021-08-09] MEDS: Propofol 1,000 MG/100 ML VIAL IV PRN ×2 (02:30→17:59)
[2021-08-09] MEDS: Lorazepam 2 MG/ML VIAL SLOW IVP PRN (03:34)
[2021-08-09] MEDS ORDERED: Dextrose 50% Abboject 50 ML SYRINGE ONE (06:16)
[2021-08-09] MEDS: Levothyroxine Sodium 75 MCG TAB PO SCH (06:17)
[2021-08-09] MEDS: Dextrose 50% Abboject 50 ML SYRINGE SLOW IVP PRN (06:18)
[2021-08-09 06:19] LABS: Band 4 % (5-11); Hypochromia SLIGHT = 6-15 cells (100X) (0-5/hpf); Lymphocytes 9 % (21-51); MDiff Complete? YES; Macrocytosis SLIGHT = 6-15 cells (100X) (0-5/hpf); Monocytes 5 % (0-10); Neutrophil 82 % (42-75); Platelet Morphology Comment Appears Adequate
[2021-08-09] MEDS: Cholecalciferol (Vitamin D3) 400 UNITS TAB PO SCH (07:32)
[2021-08-09] MEDS: Zinc Sulfate 220 MG CAP PO SCH (07:32)
[2021-08-09] MEDS: Ascorbic Acid 500 mg Chewable Tablet PO SCH (07:32)
[2021-08-09] MEDS: Enoxaparin Sodium 40 MG/0.4 ML SYRINGE SC SCH ×2 (07:32→20:11)
[2021-08-09] MEDS: Potassium Chloride 20 MEQ TAB PO SCH ×2 (07:32→17:59)
[2021-08-09] MEDS: Amiodarone 200 MG TAB PO SCH (07:32)
[2021-08-09] MEDS: Furosemide 20 MG/2 ML VIAL SLOW IVP SCH (07:33)
[2021-08-09] MEDS: Dexamethasone 10 MG/ML VIAL SLOW IVP SCH (07:33)
[2021-08-09] MEDS: Lantus 1000 UNITS/10 ML VIAL SC SCH (07:34)
[2021-08-09] MEDS: Lansoprazole 3 MG/ML ORAL SUSPENSION PER TUBE SCH (07:34)
[2021-08-09 07:43] LABS: Actual Bicarbonate (HCO3a) 34.6 mEq/L (22-28); Base Excess (BEa) 8.1 mEq/L (-2.0 to +3.0); CO2 Tension 58.3 mmHg (35.0-45.0); Hemoglobin (Hb) 11.2 g/dL (12.0-16.0); O2 Tension (PaO2), arterial 57.6 mmHg (> 80.0); Potassium - ABG Lab 4.06 mmol/L (3.70-5.30); pH, Arterial 7.39 (7.35-7.45)
[2021-08-09 07:44] LABS: Puncture Site RRA
[2021-08-09 07:45] LABS: ALV-art Gradient 226.025 mmHg (0-20)
[2021-08-09 09:32] LABS: Hemoglobin 8.8 g/dL (12.0-16.0); Mean Corpuscular HGB CONC 32.6 g/dL (32.0-36.0); Mean Corpuscular Hemoglobin 37.3 pg (27.0-31.0); Mean Platelet Volume 9.2 fL (7.4-10.4); Platelet Count 158 thou/uL (130-400); RBC Distribution Width 11.6 % (11.5-14.5); Red Blood Cell (RBC) Count 2.34 mill/uL (4.20-5.40); White Blood Cell (WBC) Count 8.1 thou/uL (4.8-10.8)
[2021-08-09 09:55] LABS: Metamyelocyte 2 % (0-0); Myelocyte 2 % (0-0); Polychromasia SLIGHT = 2-3 cells (100X) (0-2/hpf)
[2021-08-09 10:40] LABS: Hemoglobin 10.4 g/dL (12.0-16.0); Mean Corpuscular HGB CONC 33.6 g/dL (32.0-36.0); Mean Corpuscular Hemoglobin 37.8 pg (27.0-31.0); Platelet Count 169 thou/uL (130-400); RBC Distribution Width 11.6 % (11.5-14.5); Red Blood Cell (RBC) Count 2.75 mill/uL (4.20-5.40); White Blood Cell (WBC) Count 14.7 thou/uL (4.8-10.8)
[2021-08-09 10:52] LABS: Anion Gap 15 mmol/L (10-20); BUN (Urea Nitrogen) 41 mg/dL (9.8-20.1); Calc. Creatinine Clearance 63 mL/min (70-130); Calcium 8.6 mg/dL (7.8-10.44); Carbon Dioxide 32 mmol/L (23-31); Chloride 95 mmol/L (98-107); Glucose 103 mg/dL (80-115); Potassium 4.5 mmol/L (3.5-5.1); Sodium 137 mmol/L (136-145)
[2021-08-09] MEDS: fentaNYL Citrate-0.9 % NaCl/PF 100 ML IVPB SCH ×2 (11:21→23:40)
[2021-08-09 11:43] LABS: Band 6 % (5-11); Lymphocytes 5 % (21-51); MDiff Complete? YES; Macrocytosis MODERATE=16-30 cells (100X) (0-5/hpf); Metamyelocyte 1 % (0-0); Monocytes 3 % (0-10); Neutrophil 84 % (42-75); Platelet Morphology Comment Appears Adequate; Polychromasia SLIGHT = 2-3 cells (100X) (0-2/hpf); Reactive Lymphocytes 1 % (0-10)
[2021-08-09] MEDS: Citalopram 10 MG TAB PER TUBE SCH (18:00)
[2021-08-09] MEDS ORDERED: Furosemide 40 MG/4 ML VIAL SLOW IVP SCH (18:00)
[2021-08-10 00:49] LABS: Hemoglobin 9.4 g/dL (12.0-16.0); Platelet Count 177 thou/uL (130-400)
[2021-08-10 04:51] LABS: Band 18 % (5-11); Hemoglobin 8.2 g/dL (12.0-16.0); Lymphocytes 5 % (21-51); MDiff Complete? YES; Mean Corpuscular HGB CONC 32.4 g/dL (32.0-36.0); Mean Corpuscular Hemoglobin 37.3 pg (27.0-31.0); Mean Platelet Volume 9.9 fL (7.4-10.4); Monocytes 6 % (0-10); Neutrophil 71 % (42-75); Platelet Count 154 thou/uL (130-400); Platelet Morphology Comment Appears Adequate; RBC Distribution Width 11.7 % (11.5-14.5); Red Blood Cell (RBC) Count 2.21 mill/uL (4.20-5.40); White Blood Cell (WBC) Count 7.4 thou/uL (4.8-10.8)
[2021-08-10 05:03] LABS: Anion Gap 13 mmol/L (10-20); BUN (Urea Nitrogen) 46 mg/dL (9.8-20.1); Calc. Creatinine Clearance 52 mL/min (70-130); Calcium 8.2 mg/dL (7.8-10.44); Carbon Dioxide 35 mmol/L (23-31); Chloride 94 mmol/L (98-107); Glucose 110 mg/dL (80-115); Potassium 4.2 mmol/L (3.5-5.1); Sodium 138 mmol/L (136-145)
[2021-08-10] MEDS ORDERED: Digoxin 0.5 MG/2 ML AMP SLOW IVP SCH (05:45)
[2021-08-10] MEDS: Levothyroxine Sodium 75 MCG TAB PO SCH (05:46)
[2021-08-10] MEDS: Propofol 1,000 MG/100 ML VIAL IV PRN (07:13)
[2021-08-10] MEDS: Enoxaparin Sodium 40 MG/0.4 ML SYRINGE SC SCH ×2 (07:13→19:44)
[2021-08-10] MEDS: Amiodarone 200 MG TAB PO SCH (07:14)
[2021-08-10] MEDS: Furosemide 20 MG/2 ML VIAL SLOW IVP SCH (07:14)
[2021-08-10] MEDS: Ascorbic Acid 500 mg Chewable Tablet PO SCH (07:14)
[2021-08-10] MEDS: Dexamethasone 10 MG/ML VIAL SLOW IVP SCH (07:14)
[2021-08-10] MEDS: Zinc Sulfate 220 MG CAP PO SCH (07:14)
[2021-08-10] MEDS: Potassium Chloride 20 MEQ TAB PO SCH ×2 (07:14→18:22)
[2021-08-10] MEDS: Cholecalciferol (Vitamin D3) 400 UNITS TAB PO SCH (07:14)
[2021-08-10] MEDS: Citalopram 10 MG TAB PER TUBE SCH (07:19)
[2021-08-10 07:57] LABS: Actual Bicarbonate (HCO3a) 38.9 mEq/L (22-28); Base Excess (BEa) 9.4 mEq/L (-2.0 to +3.0); Calcium, Ionized (arterial) 1.15 mmol/L (1.12-1.30); Carboxyhemoglobin (COHb) 1.2 gm% (0.0-3.0); Hemoglobin (Hb) 13.5 g/dL (12.0-16.0); O2 Tension (PaO2), arterial 61.7 mmHg (> 80.0); Potassium - ABG Lab 4.01 mmol/L (3.70-5.30)
[2021-08-10] MEDS: Lansoprazole 3 MG/ML ORAL SUSPENSION PER TUBE SCH (08:01)
[2021-08-10] MEDS: Lantus 1000 UNITS/10 ML VIAL SC SCH (08:01)
[2021-08-10 08:02] LABS: CO2 Tension 80.2 mmHg (35.0-45.0); Puncture Site LRA
[2021-08-10] MEDS ORDERED: Amiodarone 450 MG, Admixture Fee 1 EACH in Dextrose 5% in Water 250 ML IVPB SCH (10:00)
[2021-08-10] MEDS: fentaNYL Citrate-0.9 % NaCl/PF 100 ML IVPB SCH (11:32)
[2021-08-10] MEDS: HumaLOG 300 UNITS/3 ML VIAL SC PRN (13:57)
[2021-08-10] MEDS: Lorazepam 2 MG/ML VIAL SLOW IVP PRN ×3 (14:41→21:16)
[2021-08-10] MEDS ORDERED: Norepinephrine 8 MG/0.9% NS 250 ML ONE (15:31)
[2021-08-10] MEDS: Norepinephrine 8 MG/0.9% NS 250 ML IVPB SCH (15:47)
[2021-08-11] MEDS: HumaLOG 300 UNITS/3 ML VIAL SC PRN ×3 (00:02→23:39)
[2021-08-11 05:31] LABS: Anion Gap 14 mmol/L (10-20); BUN (Urea Nitrogen) 51 mg/dL (9.8-20.1); Calc. Creatinine Clearance 46 mL/min (70-130); Calcium 8.5 mg/dL (7.8-10.44); Carbon Dioxide 33 mmol/L (23-31); Chloride 91 mmol/L (98-107); Glucose 142 mg/dL (80-115); Potassium 4.4 mmol/L (3.5-5.1); Sodium 134 mmol/L (136-145)
[2021-08-11] MEDS: Propofol 1,000 MG/100 ML VIAL IV PRN ×2 (06:29→23:36)
[2021-08-11] MEDS: Levothyroxine Sodium 75 MCG TAB PO SCH (06:29)
[2021-08-11 07:00] LABS: Hemoglobin 8.9 g/dL (12.0-16.0); Mean Corpuscular HGB CONC 31.6 g/dL (32.0-36.0); Mean Corpuscular Hemoglobin 36.6 pg (27.0-31.0); Mean Platelet Volume 10.1 fL (7.4-10.4); Platelet Count 187 thou/uL (130-400); RBC Distribution Width 11.5 % (11.5-14.5); Red Blood Cell (RBC) Count 2.43 mill/uL (4.20-5.40); White Blood Cell (WBC) Count 10.1 thou/uL (4.8-10.8)
[2021-08-11] MEDS: Potassium Chloride 20 MEQ TAB PO SCH (07:46)
[2021-08-11] MEDS: Ascorbic Acid 500 mg Chewable Tablet PO SCH (07:46)
[2021-08-11] MEDS: Zinc Sulfate 220 MG CAP PO SCH (07:46)
[2021-08-11] MEDS: Enoxaparin Sodium 40 MG/0.4 ML SYRINGE SC SCH ×2 (07:47→21:42)
[2021-08-11] MEDS: Citalopram 10 MG TAB PER TUBE SCH (07:47)
[2021-08-11] MEDS: Dexamethasone 10 MG/ML VIAL SLOW IVP SCH (07:47)
[2021-08-11] MEDS: Cholecalciferol (Vitamin D3) 400 UNITS TAB PO SCH (07:47)
[2021-08-11] MEDS: Furosemide 20 MG/2 ML VIAL SLOW IVP SCH (07:47)
[2021-08-11] MEDS: Lansoprazole 3 MG/ML ORAL SUSPENSION PER TUBE SCH (07:48)
[2021-08-11] MEDS: Lantus 1000 UNITS/10 ML VIAL SC SCH (08:04)
[2021-08-11 08:11] LABS: Actual Bicarbonate (HCO3a) 34.1 mEq/L (22-28); Base Excess (BEa) 10.5 mEq/L (-2.0 to +3.0); CO2 Tension 41.9 mmHg (35.0-45.0); Calcium, Ionized (arterial) 1.07 mmol/L (1.12-1.30); Carboxyhemoglobin (COHb) 1.3 gm% (0.0-3.0); Hemoglobin (Hb) 9.4 g/dL (12.0-16.0); Potassium - ABG Lab 4.24 mmol/L (3.70-5.30); pH, Arterial 7.53 (7.35-7.45)
[2021-08-11 08:14] LABS: ALV-art Gradient 261.775 mmHg (0-20); Puncture Site RRA
[2021-08-11 08:16] LABS: Band 9 % (5-11); Lymphocytes 10 % (21-51); MDiff Complete? YES; Macrocytosis MODERATE=16-30 cells (100X) (0-5/hpf); Monocytes 2 % (0-10); Neutrophil 79 % (42-75); Platelet Morphology Comment Appears Adequate; Polychromasia MODERATE = 3-4 cells (100X) (0-2/hpf); Stomatocytes SLIGHT = 2-5 cells (100X) (0-1/hpf)
[2021-08-11] MEDS ORDERED: DOBUTamine 500 mg/250 ml 250 ML IVPB SCH (09:00)
[2021-08-11] MEDS: Norepinephrine 8 MG/0.9% NS 250 ML IVPB SCH (17:25)
[2021-08-11] MEDS: fentaNYL Citrate-0.9 % NaCl/PF 100 ML IVPB SCH (18:49)
[2021-08-12 04:53] LABS: Anion Gap 10 mmol/L (10-20); BUN (Urea Nitrogen) 50 mg/dL (9.8-20.1); Calc. Creatinine Clearance 49 mL/min (70-130); Calcium 8.3 mg/dL (7.8-10.44); Carbon Dioxide 36 mmol/L (23-31); Chloride 95 mmol/L (98-107); Glucose 89 mg/dL (80-115); Potassium 4.2 mmol/L (3.5-5.1); Sodium 137 mmol/L (136-145)
[2021-08-12 05:25] LABS: Band 3 % (5-11); Hemoglobin 8.9 g/dL (12.0-16.0); Lymphocytes 6 % (21-51); MDiff Complete? YES; Macrocytosis MODERATE=16-30 cells (100X) (0-5/hpf); Mean Corpuscular HGB CONC 33.4 g/dL (32.0-36.0); Mean Corpuscular Hemoglobin 38.2 pg (27.0-31.0); Mean Platelet Volume 9.8 fL (7.4-10.4); Monocytes 3 % (0-10); Neutrophil 88 % (42-75); Platelet Count 171 thou/uL (130-400); RBC Distribution Width 11.7 % (11.5-14.5); Red Blood Cell (RBC) Count 2.33 mill/uL (4.20-5.40)
[2021-08-12] MEDS: Levothyroxine Sodium 75 MCG TAB PO SCH (05:44)
[2021-08-12] MEDS: Cholecalciferol (Vitamin D3) 400 UNITS TAB PO SCH (08:39)
[2021-08-12] MEDS: Potassium Chloride 20 MEQ TAB PO SCH (08:39)
[2021-08-12] MEDS: Ascorbic Acid 500 mg Chewable Tablet PO SCH (08:39)
[2021-08-12] MEDS: Citalopram 10 MG TAB PER TUBE SCH (08:39)
[2021-08-12] MEDS: Enoxaparin Sodium 40 MG/0.4 ML SYRINGE SC SCH ×2 (08:39→20:08)
[2021-08-12] MEDS: Zinc Sulfate 220 MG CAP PO SCH (08:40)
[2021-08-12] MEDS: Lansoprazole 3 MG/ML ORAL SUSPENSION PER TUBE SCH (08:40)
[2021-08-12] MEDS: Furosemide 20 MG/2 ML VIAL SLOW IVP SCH (08:41)
[2021-08-12] MEDS: Lantus 1000 UNITS/10 ML VIAL SC SCH (08:41)
[2021-08-12] MEDS: Dexamethasone 10 MG/ML VIAL SLOW IVP SCH (08:41)
[2021-08-12] MEDS ORDERED: Electrolyte Replacement Protocol 1 EACH FS SCH (10:00)
[2021-08-12 10:22] LABS: Magnesium 1.9 mg/dL (1.6-2.6); Phosphorus 3.2 mg/dL (2.3-4.7)
[2021-08-12] MEDS ORDERED: Fentanyl BOLUS 250 ML IVPB PRN (10:48)
[2021-08-12] MEDS ORDERED: Morphine 4 MG/ML VIAL SLOW IVP PRN (10:48)
[2021-08-12] MEDS ORDERED: Magnesium 2 GM/50 ML(in water) 2 GM in Premix Bag 1 BAG IVPB SCH (11:00)
[2021-08-12] MEDS ORDERED: Electrolyte Replacement Protocol FS PRN (11:00)
[2021-08-12] MEDS: HumaLOG 300 UNITS/3 ML VIAL SC PRN ×3 (13:00→22:39)
[2021-08-12] MEDS: Propofol 1,000 MG/100 ML VIAL IV PRN (20:02)
[2021-08-12] MEDS: fentaNYL Citrate-0.9 % NaCl/PF 100 ML IVPB SCH (20:11)
[2021-08-13 04:42] LABS: BUN (Urea Nitrogen) 52 mg/dL (9.8-20.1); Calc. Creatinine Clearance 54 mL/min (70-130); Calcium 8.1 mg/dL (7.8-10.44); Glucose 94 mg/dL (80-115)
[2021-08-13 04:48] LABS: Phosphorus 3.5 mg/dL (2.3-4.7)
[2021-08-13 04:52] LABS: Anion Gap 6 mmol/L (10-20); Chloride 95 mmol/L (98-107); Potassium 4.1 mmol/L (3.5-5.1); Sodium 138 mmol/L (136-145)
[2021-08-13 04:56] LABS: Carbon Dioxide 41 mmol/L (23-31)
[2021-08-13] MEDS: Levothyroxine Sodium 75 MCG TAB PO SCH (05:09)
[2021-08-13 05:26] LABS: Hemoglobin 8.6 g/dL (12.0-16.0); Mean Corpuscular HGB CONC 31.8 g/dL (32.0-36.0); Mean Corpuscular Hemoglobin 36.8 pg (27.0-31.0); Mean Platelet Volume 9.3 fL (7.4-10.4); Platelet Count 170 thou/uL (130-400); RBC Distribution Width 11.7 % (11.5-14.5); Red Blood Cell (RBC) Count 2.33 mill/uL (4.20-5.40); White Blood Cell (WBC) Count 8.7 thou/uL (4.8-10.8)
[2021-08-13 06:37] LABS: Band 19 % (5-11); Lymphocytes 6 % (21-51); MDiff Complete? YES; Monocytes 5 % (0-10); Neutrophil 70 % (42-75)
[2021-08-13] MEDS: Cholecalciferol (Vitamin D3) 400 UNITS TAB PO SCH (09:59)
[2021-08-13] MEDS: Potassium Chloride 20 MEQ TAB PO SCH (09:59)
[2021-08-13] MEDS: Enoxaparin Sodium 40 MG/0.4 ML SYRINGE SC SCH ×2 (09:59→21:45)
[2021-08-13] MEDS: Ascorbic Acid 500 mg Chewable Tablet PO SCH (09:59)
[2021-08-13] MEDS: Zinc Sulfate 220 MG CAP PO SCH (09:59)
[2021-08-13] MEDS: Furosemide 20 MG/2 ML VIAL SLOW IVP SCH (10:00)
[2021-08-13] MEDS: Lansoprazole 3 MG/ML ORAL SUSPENSION PER TUBE SCH (10:00)
[2021-08-13] MEDS: Citalopram 10 MG TAB PER TUBE SCH (10:00)
[2021-08-13] MEDS: Dexamethasone 10 MG/ML VIAL SLOW IVP SCH (10:00)
[2021-08-13] MEDS: Lantus 1000 UNITS/10 ML VIAL SC SCH (10:30)
[2021-08-13] MEDS ORDERED: Diltiazem 125 MG in Sodium Chloride 0.9% 100 ML IVPB SCH (12:30)
[2021-08-13] MEDS: fentaNYL Citrate-0.9 % NaCl/PF 100 ML IVPB SCH (19:04)
[2021-08-14 05:21] LABS: Band 8 % (5-11); Hemoglobin 7.6 g/dL (12.0-16.0); MDiff Complete? YES; Macrocytosis MODERATE=16-30 cells (100X) (0-5/hpf); Mean Corpuscular Hemoglobin 37.2 pg (27.0-31.0); Mean Platelet Volume 9.1 fL (7.4-10.4); Monocytes 1 % (0-10); Neutrophil 91 % (42-75); Platelet Count 144 thou/uL (130-400); RBC Distribution Width 11.8 % (11.5-14.5); Red Blood Cell (RBC) Count 2.05 mill/uL (4.20-5.40); White Blood Cell (WBC) Count 5.5 thou/uL (4.8-10.8)
[2021-08-14 05:22] LABS: Anion Gap 32 mmol/L (10-20); BUN (Urea Nitrogen) 52 mg/dL (9.8-20.1); Calc. Creatinine Clearance 0 mL/min (70-130); Calcium 8.1 mg/dL (7.8-10.44); Carbon Dioxide 15 mmol/L (23-31); Chloride 96 mmol/L (98-107); Glucose 113 mg/dL (80-115); Magnesium 2.1 mg/dL (1.6-2.6); Potassium 3.9 mmol/L (3.5-5.1); Sodium 139 mmol/L (136-145)
[2021-08-14] MEDS: Levothyroxine Sodium 75 MCG TAB PO SCH (05:24)
[2021-08-14] MEDS: Lorazepam 2 MG/ML VIAL SLOW IVP PRN ×2 (09:56→22:02)
[2021-08-14] MEDS: Lansoprazole 3 MG/ML ORAL SUSPENSION PER TUBE SCH (09:56)
[2021-08-14] MEDS: Enoxaparin Sodium 40 MG/0.4 ML SYRINGE SC SCH ×2 (09:57→20:27)
[2021-08-14] MEDS: Zinc Sulfate 220 MG CAP PO SCH (09:57)
[2021-08-14] MEDS: Citalopram 10 MG TAB PER TUBE SCH (09:57)
[2021-08-14] MEDS: Ascorbic Acid 500 mg Chewable Tablet PO SCH (09:57)
[2021-08-14] MEDS: Potassium Chloride 20 MEQ TAB PO SCH (09:57)
[2021-08-14] MEDS: Furosemide 20 MG/2 ML VIAL SLOW IVP SCH (09:57)
[2021-08-14] MEDS: Dexamethasone 10 MG/ML VIAL SLOW IVP SCH (09:58)
[2021-08-14] MEDS: Cholecalciferol (Vitamin D3) 400 UNITS TAB PO SCH (09:58)
[2021-08-14] MEDS: Lantus 1000 UNITS/10 ML VIAL SC SCH (09:59)
[2021-08-14] MEDS: Amiodarone 450 MG in Dextrose 5% in Water 250 ML IVPB SCH (11:54)
[2021-08-14 14:04] LABS: Anion Gap 12 mmol/L (10-20); BUN (Urea Nitrogen) 54 mg/dL (9.8-20.1); Calc. Creatinine Clearance 0 mL/min (70-130); Calcium 8.3 mg/dL (7.8-10.44); Chloride 97 mmol/L (98-107); Glucose 130 mg/dL (80-115); Potassium 3.8 mmol/L (3.5-5.1); Sodium 138 mmol/L (136-145)
[2021-08-14 14:16] LABS: Carbon Dioxide 33 mmol/L (23-31)
[2021-08-14] MEDS: Scopolamine 1.5 mg/72 hour Patch TOP SCH (14:42)
[2021-08-14] MEDS: HumaLOG 300 UNITS/3 ML VIAL SC PRN (16:51)
[2021-08-14] MEDS ORDERED: fentaNYL Citrate-0.9 % NaCl/PF 100 ML IVPB SCH (17:30)
[2021-08-14] MEDS: fentaNYL Citrate/PF 2,000 MCG in Sodium Chloride 0.9% 60 ML IV SCH (18:05)
[2021-08-15 05:25] LABS: Anion Gap 10 mmol/L (10-20); BUN (Urea Nitrogen) 59 mg/dL (9.8-20.1); Calc. Creatinine Clearance 0 mL/min (70-130); Carbon Dioxide 35 mmol/L (23-31); Chloride 97 mmol/L (98-107); Glucose 118 mg/dL (80-115); Sodium 138 mmol/L (136-145)
[2021-08-15 05:35] LABS: Band 11 % (5-11); Hemoglobin 9.2 g/dL (12.0-16.0); Lymphocytes 5 % (21-51); MDiff Complete? YES; Mean Corpuscular HGB CONC 32.6 g/dL (32.0-36.0); Mean Corpuscular Hemoglobin 35.7 pg (27.0-31.0); Mean Platelet Volume 9.5 fL (7.4-10.4); Monocytes 2 % (0-10); Neutrophil 82 % (42-75); Platelet Count 140 thou/uL (130-400); Platelet Morphology Comment Appears Adequate; RBC Distribution Width 15.7 % (11.5-14.5); RBC Morphology Normal; Red Blood Cell (RBC) Count 2.58 mill/uL (4.20-5.40); White Blood Cell (WBC) Count 6.2 thou/uL (4.8-10.8)
[2021-08-15] MEDS: Amiodarone 450 MG in Dextrose 5% in Water 250 ML IVPB SCH (05:58)
[2021-08-15] MEDS: Levothyroxine Sodium 75 MCG TAB PO SCH (05:58)
[2021-08-15] MEDS ORDERED: Magnesium 2 GM/50 ML(in water) 2 GM in Premix Bag 1 BAG IVPB SCH (07:00)
[2021-08-15 07:25] LABS: Actual Bicarbonate (HCO3a) 33.9 mEq/L (22-28); Base Excess (BEa) 8.1 mEq/L (-2.0 to +3.0); CO2 Tension 51.1 mmHg (35.0-45.0); Calcium, Ionized (arterial) 1.12 mmol/L (1.12-1.30); O2 Tension (PaO2), arterial 76.3 mmHg (> 80.0); Potassium - ABG Lab 3.91 mmol/L (3.70-5.30); pH, Arterial 7.44 (7.35-7.45)
[2021-08-15 07:26] LABS: Puncture Site RBA
[2021-08-15 07:27] LABS: ALV-art Gradient 251.975 mmHg (0-20)
[2021-08-15] MEDS: Potassium Chloride 20 MEQ TAB PO SCH (09:25)
[2021-08-15] MEDS: Enoxaparin Sodium 40 MG/0.4 ML SYRINGE SC SCH ×2 (09:25→20:39)
[2021-08-15] MEDS: Citalopram 10 MG TAB PER TUBE SCH (09:26)
[2021-08-15] MEDS: Furosemide 20 MG/2 ML VIAL SLOW IVP SCH (09:26)
[2021-08-15] MEDS: Ascorbic Acid 500 mg Chewable Tablet PO SCH (09:26)
[2021-08-15] MEDS: Cholecalciferol (Vitamin D3) 400 UNITS TAB PO SCH (09:26)
[2021-08-15] MEDS: Lansoprazole 3 MG/ML ORAL SUSPENSION PER TUBE SCH (09:26)
[2021-08-15] MEDS: Zinc Sulfate 220 MG CAP PO SCH (09:26)
[2021-08-15] MEDS: Dexamethasone 10 MG/ML VIAL SLOW IVP SCH (09:27)
[2021-08-15] MEDS: Lantus 1000 UNITS/10 ML VIAL SC SCH (09:53)
[2021-08-15] MEDS: fentaNYL Citrate/PF 2,000 MCG in Sodium Chloride 0.9% 60 ML IV SCH (14:14)
[2021-08-15] MEDS: Lorazepam 2 MG/ML VIAL SLOW IVP PRN (16:52)
[2021-08-15] MEDS: HumaLOG 300 UNITS/3 ML VIAL SC PRN (16:56)
[2021-08-16] MEDS: Lorazepam 2 MG/ML VIAL SLOW IVP PRN (01:36)
[2021-08-16] MEDS: Levothyroxine Sodium 75 MCG TAB PO SCH (05:58)
[2021-08-16 06:00] LABS: Hemoglobin 8.6 g/dL (12.0-16.0); Mean Corpuscular HGB CONC 32.1 g/dL (32.0-36.0); Mean Corpuscular Hemoglobin 35.3 pg (27.0-31.0); Mean Platelet Volume 9.1 fL (7.4-10.4); Platelet Count 132 thou/uL (130-400); RBC Distribution Width 15.2 % (11.5-14.5); Red Blood Cell (RBC) Count 2.44 mill/uL (4.20-5.40); White Blood Cell (WBC) Count 5.2 thou/uL (4.8-10.8)
[2021-08-16 06:36] LABS: Anion Gap 9 mmol/L (10-20); BUN (Urea Nitrogen) 59 mg/dL (9.8-20.1); Calc. Creatinine Clearance 0 mL/min (70-130); Carbon Dioxide 36 mmol/L (23-31); Chloride 96 mmol/L (98-107); Glucose 124 mg/dL (80-115); Potassium 3.8 mmol/L (3.5-5.1); Sodium 137 mmol/L (136-145)
[2021-08-16 06:46] LABS: Band 8 % (5-11); Lymphocytes 5 % (21-51); MDiff Complete? YES; Macrocytosis SLIGHT = 6-15 cells (100X) (0-5/hpf); Monocytes 2 % (0-10); Neutrophil 85 % (42-75)
[2021-08-16 07:21] LABS: Magnesium 2.3 mg/dL (1.6-2.6)
[2021-08-16] MEDS: fentaNYL Citrate/PF 2,000 MCG in Sodium Chloride 0.9% 60 ML IV SCH (08:23)
[2021-08-16] MEDS: Citalopram 10 MG TAB PER TUBE SCH (09:36)
[2021-08-16] MEDS: ALPRAZolam 0.5 MG TAB PO SCH ×2 (09:36→20:07)
[2021-08-16] MEDS: Cholecalciferol (Vitamin D3) 400 UNITS TAB PO SCH (09:36)
[2021-08-16] MEDS: Ascorbic Acid 500 mg Chewable Tablet PO SCH (09:36)
[2021-08-16] MEDS: Enoxaparin Sodium 40 MG/0.4 ML SYRINGE SC SCH ×2 (09:36→20:07)
[2021-08-16] MEDS: Potassium Chloride 20 MEQ TAB PO SCH (09:36)
[2021-08-16] MEDS: Zinc Sulfate 220 MG CAP PO SCH (09:36)
[2021-08-16] MEDS: Dexamethasone 10 MG/ML VIAL SLOW IVP SCH (09:36)
[2021-08-16] MEDS: Furosemide 20 MG/2 ML VIAL SLOW IVP SCH (09:37)
[2021-08-16] MEDS: HumaLOG 300 UNITS/3 ML VIAL SC PRN (10:03)
[2021-08-16] MEDS: Lantus 1000 UNITS/10 ML VIAL SC SCH (10:05)
[2021-08-16] MEDS: Lansoprazole 3 MG/ML ORAL SUSPENSION PER TUBE SCH (10:06)
[2021-08-16] MEDS ORDERED: Furosemide 20 MG/2 ML VIAL SLOW IVP SCH (15:00)
[2021-08-16] MEDS: Amiodarone 450 MG in Dextrose 5% in Water 250 ML IVPB SCH (16:00)
[2021-08-17] MEDS: fentaNYL Citrate/PF 2,000 MCG in Sodium Chloride 0.9% 60 ML IV SCH ×2 (03:19→23:36)
[2021-08-17 05:49] LABS: Anion Gap 11 mmol/L (10-20); BUN (Urea Nitrogen) 56 mg/dL (9.8-20.1); Calc. Creatinine Clearance 0 mL/min (70-130); Calcium 8.6 mg/dL (7.8-10.44); Carbon Dioxide 37 mmol/L (23-31); Chloride 93 mmol/L (98-107); Glucose 111 mg/dL (80-115); Potassium 3.6 mmol/L (3.5-5.1); Sodium 137 mmol/L (136-145)
[2021-08-17 06:13] LABS: Band 12 % (5-11); Hemoglobin 10.4 g/dL (12.0-16.0); Lymphocytes 10 % (21-51); MDiff Complete? YES; Mean Corpuscular Hemoglobin 35.2 pg (27.0-31.0); Neutrophil 78 % (42-75); Platelet Count 160 thou/uL (130-400); RBC Distribution Width 14.7 % (11.5-14.5); Red Blood Cell (RBC) Count 2.95 mill/uL (4.20-5.40); White Blood Cell (WBC) Count 6.4 thou/uL (4.8-10.8)
[2021-08-17] MEDS: Levothyroxine Sodium 75 MCG TAB PO SCH (06:13)
[2021-08-17 07:10] LABS: Actual Bicarbonate (HCO3a) 29.7 mEq/L (22-28); Base Excess (BEa) 6.3 mEq/L (-2.0 to +3.0); Calcium, Ionized (arterial) 1.09 mmol/L (1.12-1.30); Carboxyhemoglobin (COHb) 0.1 gm% (0.0-3.0); Hemoglobin (Hb) 10.6 g/dL (12.0-16.0); O2 Tension (PaO2), arterial 61.5 mmHg (> 80.0); Potassium - ABG Lab 3.59 mmol/L (3.70-5.30); pH, Arterial 7.51 (7.35-7.45)
[2021-08-17 08:07] LABS: Puncture Site RRA
[2021-08-17] MEDS: Citalopram 10 MG TAB PER TUBE SCH (10:44)
[2021-08-17] MEDS: Furosemide 20 MG/2 ML VIAL SLOW IVP SCH (10:44)
[2021-08-17] MEDS: Dexamethasone 10 MG/ML VIAL SLOW IVP SCH (10:44)
[2021-08-17] MEDS: Enoxaparin Sodium 40 MG/0.4 ML SYRINGE SC SCH ×2 (10:44→19:49)
[2021-08-17] MEDS: Cholecalciferol (Vitamin D3) 400 UNITS TAB PO SCH (10:45)
[2021-08-17] MEDS: ALPRAZolam 0.5 MG TAB PO SCH ×2 (10:45→19:49)
[2021-08-17] MEDS: Ascorbic Acid 500 mg Chewable Tablet PO SCH (10:45)
[2021-08-17] MEDS: Zinc Sulfate 220 MG CAP PO SCH (10:45)
[2021-08-17] MEDS: Lansoprazole 3 MG/ML ORAL SUSPENSION PER TUBE SCH (10:45)
[2021-08-17] MEDS: Potassium Chloride 20 MEQ TAB PO SCH (10:47)
[2021-08-17] MEDS: Scopolamine 1.5 mg/72 hour Patch TOP SCH (11:09)
[2021-08-17] MEDS: Lantus 1000 UNITS/10 ML VIAL SC SCH (11:10)
[2021-08-17] MEDS: HumaLOG 300 UNITS/3 ML VIAL SC PRN (16:44)
[2021-08-18 04:51] LABS: Anion Gap 13 mmol/L (10-20); BUN (Urea Nitrogen) 52 mg/dL (9.8-20.1); Calc. Creatinine Clearance 0 mL/min (70-130); Calcium 8.6 mg/dL (7.8-10.44); Carbon Dioxide 35 mmol/L (23-31); Chloride 93 mmol/L (98-107); Glucose 124 mg/dL (80-115); Potassium 3.7 mmol/L (3.5-5.1); Sodium 137 mmol/L (136-145)
[2021-08-18 05:05] LABS: Band 8 % (5-11); Hemoglobin 9.9 g/dL (12.0-16.0); Hypochromia SLIGHT = 6-15 cells (100X) (0-5/hpf); Lymphocytes 5 % (21-51); MDiff Complete? YES; Mean Corpuscular HGB CONC 31.6 g/dL (32.0-36.0); Mean Corpuscular Hemoglobin 34.6 pg (27.0-31.0); Mean Platelet Volume 9.1 fL (7.4-10.4); Monocytes 1 % (0-10); Neutrophil 86 % (42-75); Platelet Count 186 thou/uL (130-400); Platelet Morphology Comment Appears Adequate; RBC Distribution Width 14.6 % (11.5-14.5); Red Blood Cell (RBC) Count 2.86 mill/uL (4.20-5.40); White Blood Cell (WBC) Count 6.5 thou/uL (4.8-10.8)
[2021-08-18] MEDS: Levothyroxine Sodium 75 MCG TAB PO SCH (06:07)
[2021-08-18 07:48] LABS: Base Excess (BEa) 11.1 mEq/L (-2.0 to +3.0); CO2 Tension 43.8 mmHg (35.0-45.0); Calcium, Ionized (arterial) 1.07 mmol/L (1.12-1.30); Carboxyhemoglobin (COHb) 0.6 gm% (0.0-3.0); Hemoglobin (Hb) 10.5 g/dL (12.0-16.0); O2 Tension (PaO2), arterial 71.2 mmHg (> 80.0); pH, Arterial 7.52 (7.35-7.45)
[2021-08-18 08:03] LABS: Puncture Site RRA
[2021-08-18] MEDS: Zinc Sulfate 220 MG CAP PO SCH (08:43)
[2021-08-18] MEDS: Lansoprazole 3 MG/ML ORAL SUSPENSION PER TUBE SCH (08:43)
[2021-08-18] MEDS: Enoxaparin Sodium 40 MG/0.4 ML SYRINGE SC SCH ×2 (08:43→21:17)
[2021-08-18] MEDS: Cholecalciferol (Vitamin D3) 400 UNITS TAB PO SCH (08:43)
[2021-08-18] MEDS: Ascorbic Acid 500 mg Chewable Tablet PO SCH (08:43)
[2021-08-18] MEDS: Potassium Bicarbonate/Cit Ac 20 MEQ TAB PO SCH (08:43)
[2021-08-18] MEDS: ALPRAZolam 0.5 MG TAB PO SCH ×2 (08:44→21:19)
[2021-08-18] MEDS: Dexamethasone 10 MG/ML VIAL SLOW IVP SCH (08:44)
[2021-08-18] MEDS: Citalopram 10 MG TAB PER TUBE SCH (08:46)
[2021-08-18] MEDS: acetaZOLAMIDE Sodium 500 mg Vial IVP SCH ×2 (09:00→21:19)
[2021-08-18] MEDS ORDERED: acetaZOLAMIDE Sodium 500 mg Vial IVP SCH (09:00)
[2021-08-18] MEDS: Sterile Water 10 ML VIAL IVP SCH ×2 (09:01→21:32)
[2021-08-18] MEDS: Lantus 1000 UNITS/10 ML VIAL SC SCH (09:45)
[2021-08-18] MEDS: Amiodarone 450 MG in Dextrose 5% in Water 250 ML IVPB SCH (14:59)
[2021-08-18] MEDS ORDERED: Piperacillin/Tazobactam 3.375 GM in Sodium Chloride 0.9% 100 ML IVPB SCH ×2 (16:15→18:00)
[2021-08-18] MEDS: Piperacillin/Tazobactam 3.375 GM in Sodium Chloride 0.9% 100 ML IVPB SCH (21:18)
[2021-08-19 04:16] LABS: Anion Gap 11 mmol/L (10-20); BUN (Urea Nitrogen) 37 mg/dL (9.8-20.1); Calc. Creatinine Clearance 0 mL/min (70-130); Calcium 7.9 mg/dL (7.8-10.44); Carbon Dioxide 27 mmol/L (23-31); Chloride 101 mmol/L (98-107); Glucose 88 mg/dL (80-115); Sodium 135 mmol/L (136-145)
[2021-08-19 05:18] LABS: Band 3 % (5-11); Elliptocytes SLIGHT = 2-5 cells (100X) (0-1/hpf); Hemoglobin 8.9 g/dL (12.0-16.0); Lymphocytes 5 % (21-51); MDiff Complete? YES; Macrocytosis SLIGHT = 6-15 cells (100X) (0-5/hpf); Mean Corpuscular HGB CONC 32.5 g/dL (32.0-36.0); Mean Corpuscular Hemoglobin 35.5 pg (27.0-31.0); Mean Platelet Volume 9.4 fL (7.4-10.4); Monocytes 5 % (0-10); Neutrophil 86 % (42-75); Platelet Count 158 thou/uL (130-400); Platelet Morphology Comment Appears Adequate; RBC Distribution Width 14.4 % (11.5-14.5); Reactive Lymphocytes 1 % (0-10); Red Blood Cell (RBC) Count 2.49 mill/uL (4.20-5.40); White Blood Cell (WBC) Count 4.4 thou/uL (4.8-10.8)
[2021-08-19] MEDS: Piperacillin/Tazobactam 3.375 GM in Sodium Chloride 0.9% 100 ML IVPB SCH ×3 (05:25→20:35)
[2021-08-19] MEDS: Levothyroxine Sodium 75 MCG TAB PO SCH (05:32)
[2021-08-19 07:33] LABS: Thyroid Stimulating Hormone 2.5578 uIU/mL (0.35-4.94)
[2021-08-19] MEDS: Potassium Bicarbonate/Cit Ac 20 MEQ TAB PO SCH (08:25)
[2021-08-19] MEDS: ALPRAZolam 0.5 MG TAB PO SCH ×2 (08:25→20:36)
[2021-08-19] MEDS: Citalopram 10 MG TAB PER TUBE SCH (08:26)
[2021-08-19] MEDS: Lansoprazole 3 MG/ML ORAL SUSPENSION PER TUBE SCH (08:26)
[2021-08-19] MEDS: Cholecalciferol (Vitamin D3) 400 UNITS TAB PO SCH (08:26)
[2021-08-19] MEDS: Lantus 1000 UNITS/10 ML VIAL SC SCH (08:26)
[2021-08-19] MEDS: Ascorbic Acid 500 mg Chewable Tablet PO SCH (08:26)
[2021-08-19] MEDS: Zinc Sulfate 220 MG CAP PO SCH (08:27)
[2021-08-19] MEDS: Dexamethasone 10 MG/ML VIAL SLOW IVP SCH (08:39)
[2021-08-19] MEDS: Enoxaparin Sodium 40 MG/0.4 ML SYRINGE SC SCH ×2 (08:39→20:35)
[2021-08-19] MEDS: Sterile Water 10 ML VIAL IVP SCH (08:39)
[2021-08-19] MEDS: acetaZOLAMIDE Sodium 500 mg Vial IVP SCH (08:39)
[2021-08-19] MEDS ORDERED: Chloraseptic Spray 180 ml Bottle PO PRN (13:44)
[2021-08-20] MEDS: Piperacillin/Tazobactam 3.375 GM in Sodium Chloride 0.9% 100 ML IVPB SCH ×3 (04:16→20:03)
[2021-08-20 04:58] LABS: Anion Gap 14 mmol/L (10-20); BUN (Urea Nitrogen) 29 mg/dL (9.8-20.1); Calc. Creatinine Clearance 0 mL/min (70-130); Calcium 8.2 mg/dL (7.8-10.44); Carbon Dioxide 20 mmol/L (23-31); Chloride 104 mmol/L (98-107); Glucose 85 mg/dL (80-115); Sodium 135 mmol/L (136-145)
[2021-08-20 05:40] LABS: Band 6 % (5-11); Hemoglobin 10.3 g/dL (12.0-16.0); Lymphocytes 3 % (21-51); MDiff Complete? YES; Macrocytosis SLIGHT = 6-15 cells (100X) (0-5/hpf); Mean Corpuscular HGB CONC 33.2 g/dL (32.0-36.0); Mean Corpuscular Hemoglobin 35.6 pg (27.0-31.0); Mean Platelet Volume 8.7 fL (7.4-10.4); Neutrophil 91 % (42-75); Platelet Count 196 thou/uL (130-400); RBC Distribution Width 14.4 % (11.5-14.5); Red Blood Cell (RBC) Count 2.88 mill/uL (4.20-5.40); White Blood Cell (WBC) Count 9.1 thou/uL (4.8-10.8)
[2021-08-20] MEDS: Levothyroxine Sodium 75 MCG TAB PO SCH (07:00)
[2021-08-20] MEDS: Zinc Sulfate 220 MG CAP PO SCH (07:35)
[2021-08-20] MEDS: Ascorbic Acid 500 mg Chewable Tablet PO SCH (07:35)
[2021-08-20] MEDS: Potassium Bicarbonate/Cit Ac 20 MEQ TAB PO SCH (07:35)
[2021-08-20] MEDS: ALPRAZolam 0.5 MG TAB PO SCH ×2 (07:35→20:04)
[2021-08-20] MEDS: Lansoprazole 3 MG/ML ORAL SUSPENSION PER TUBE SCH (07:35)
[2021-08-20] MEDS: Citalopram 10 MG TAB PER TUBE SCH (07:35)
[2021-08-20] MEDS: Cholecalciferol (Vitamin D3) 400 UNITS TAB PO SCH (07:35)
[2021-08-20] MEDS: Lantus 1000 UNITS/10 ML VIAL SC SCH (08:16)
[2021-08-20] MEDS: Enoxaparin Sodium 40 MG/0.4 ML SYRINGE SC SCH ×2 (08:24→20:04)
[2021-08-20] MEDS: Potassium Chloride 20 MEQ in Premix Bag 1 BAG IVPB SCH ×2 (08:24→10:25)
[2021-08-20] MEDS: Dexamethasone 10 MG/ML VIAL SLOW IVP SCH (08:24)
[2021-08-20] MEDS: Amiodarone 450 MG in Dextrose 5% in Water 250 ML IVPB SCH (08:24)
[2021-08-20] MEDS: Scopolamine 1.5 mg/72 hour Patch TOP SCH (09:15)
[2021-08-20] MEDS ORDERED: Amiodarone 450 MG in Dextrose 5% in Water 250 ML IVPB SCH (09:45)
[2021-08-20 17:53] LABS: Potassium 3.6 mmol/L (3.5-5.1)
[2021-08-20] MEDS ORDERED: D5W-AA 4.25% with LYTES 1,000 ML IV SCH (19:15)
[2021-08-20] MEDS ORDERED: AA 4.25 %/CALCIUM/LYTES/D5W 2,000 ML IV SCH (20:15)
[2021-08-21 05:08] LABS: Anion Gap 12 mmol/L (10-20); BUN (Urea Nitrogen) 24 mg/dL (9.8-20.1); Calc. Creatinine Clearance 65 mL/min (70-130); Calcium 8.2 mg/dL (7.8-10.44); Carbon Dioxide 21 mmol/L (23-31); Chloride 106 mmol/L (98-107); Glucose 131 mg/dL (80-115); Potassium 3.2 mmol/L (3.5-5.1); Sodium 136 mmol/L (136-145)
[2021-08-21] MEDS: Piperacillin/Tazobactam 3.375 GM in Sodium Chloride 0.9% 100 ML IVPB SCH ×3 (05:13→20:33)
[2021-08-21] MEDS: Levothyroxine Sodium 75 MCG TAB PO SCH (05:17)
[2021-08-21 06:06] LABS: Band 2 % (5-11); Hemoglobin 9.8 g/dL (12.0-16.0); Lymphocytes 2 % (21-51); MDiff Complete? YES; Mean Corpuscular HGB CONC 32.5 g/dL (32.0-36.0); Mean Corpuscular Hemoglobin 34.5 pg (27.0-31.0); Mean Platelet Volume 8.9 fL (7.4-10.4); Microcytosis SLIGHT = 6-15 cells (100X) (0-5/hpf); Monocytes 1 % (0-10); Neutrophil 95 % (42-75); Platelet Count 208 thou/uL (130-400); Platelet Morphology Comment Appears Adequate; RBC Distribution Width 14.4 % (11.5-14.5); Red Blood Cell (RBC) Count 2.85 mill/uL (4.20-5.40); White Blood Cell (WBC) Count 10.1 thou/uL (4.8-10.8)
[2021-08-21] MEDS: Potassium Chloride 20 MEQ in Premix Bag 1 BAG IVPB SCH ×2 (06:22→08:06)
[2021-08-21] MEDS: Citalopram 10 MG TAB PER TUBE SCH (08:02)
[2021-08-21] MEDS: ALPRAZolam 0.5 MG TAB PO SCH ×2 (08:02→20:29)
[2021-08-21] MEDS: Lantus 1000 UNITS/10 ML VIAL SC SCH (08:02)
[2021-08-21] MEDS: Cholecalciferol (Vitamin D3) 400 UNITS TAB PO SCH (08:02)
[2021-08-21] MEDS: Zinc Sulfate 220 MG CAP PO SCH (08:02)
[2021-08-21] MEDS: Ascorbic Acid 500 mg Chewable Tablet PO SCH (08:02)
[2021-08-21] MEDS: Lansoprazole 3 MG/ML ORAL SUSPENSION PER TUBE SCH (08:02)
[2021-08-21] MEDS: Dexamethasone 10 MG/ML VIAL SLOW IVP SCH (08:03)
[2021-08-21] MEDS: Potassium Bicarbonate/Cit Ac 20 MEQ TAB PO SCH (08:05)
[2021-08-21] MEDS: Enoxaparin Sodium 40 MG/0.4 ML SYRINGE SC SCH ×2 (08:06→20:33)
[2021-08-21 11:22] VITALS: BP 180/113
[2021-08-21] MEDS ORDERED: hydrALAZINE 20 MG/ML VIAL SLOW IVP PRN (18:48)
[2021-08-21] MEDS ORDERED: hydrALAZINE 20 MG/ML VIAL SLOW IVP SCH (19:00)
[2021-08-22 03:53] LABS: Hemoglobin 10.4 g/dL (12.0-16.0); Mean Corpuscular HGB CONC 32.5 g/dL (32.0-36.0); Mean Corpuscular Hemoglobin 34.8 pg (27.0-31.0); Mean Platelet Volume 8.9 fL (7.4-10.4); Platelet Count 212 thou/uL (130-400); RBC Distribution Width 14.6 % (11.5-14.5); White Blood Cell (WBC) Count 13.5 thou/uL (4.8-10.8)
[2021-08-22 04:10] LABS: Anion Gap 17 mmol/L (10-20); BUN (Urea Nitrogen) 32 mg/dL (9.8-20.1); Calc. Creatinine Clearance 53 mL/min (70-130); Calcium 8.2 mg/dL (7.8-10.44); Carbon Dioxide 18 mmol/L (23-31); Chloride 105 mmol/L (98-107); Glucose 177 mg/dL (80-115); Potassium 3.8 mmol/L (3.5-5.1); Sodium 136 mmol/L (136-145)
[2021-08-22 04:47] LABS: Band 2 % (5-11); Hemoglobin 10.4 g/dL (12.0-16.0); Hypochromia SLIGHT = 6-15 cells (100X) (0-5/hpf); Lymphocytes 9 % (21-51); MDiff Complete? YES; Macrocytosis SLIGHT = 6-15 cells (100X) (0-5/hpf); Mean Corpuscular HGB CONC 32.6 g/dL (32.0-36.0); Mean Corpuscular Hemoglobin 34.9 pg (27.0-31.0); Mean Platelet Volume 9.1 fL (7.4-10.4); Neutrophil 89 % (42-75); Platelet Count 208 thou/uL (130-400); Platelet Morphology Comment Appears Adequate; RBC Distribution Width 14.6 % (11.5-14.5); Red Blood Cell (RBC) Count 2.98 mill/uL (4.20-5.40); White Blood Cell (WBC) Count 12.7 thou/uL (4.8-10.8)
[2021-08-22] MEDS: Piperacillin/Tazobactam 3.375 GM in Sodium Chloride 0.9% 100 ML IVPB SCH ×3 (05:11→19:43)
[2021-08-22] MEDS: Levothyroxine Sodium 75 MCG TAB PO SCH (05:11)
[2021-08-22] MEDS: Lantus 1000 UNITS/10 ML VIAL SC SCH (07:10)
[2021-08-22] MEDS: Cholecalciferol (Vitamin D3) 400 UNITS TAB PO SCH (07:10)
[2021-08-22] MEDS: Citalopram 10 MG TAB PER TUBE SCH (07:10)
[2021-08-22] MEDS: Potassium Bicarbonate/Cit Ac 20 MEQ TAB PO SCH (07:10)
[2021-08-22] MEDS: ALPRAZolam 0.5 MG TAB PO SCH ×2 (07:10→19:40)
[2021-08-22] MEDS: Ascorbic Acid 500 mg Chewable Tablet PO SCH (07:10)
[2021-08-22] MEDS: Lansoprazole 3 MG/ML ORAL SUSPENSION PER TUBE SCH (07:11)
[2021-08-22] MEDS: Zinc Sulfate 220 MG CAP PO SCH (07:11)
[2021-08-22] MEDS: Dexamethasone 10 MG/ML VIAL SLOW IVP SCH (07:34)
[2021-08-22] MEDS: Enoxaparin Sodium 40 MG/0.4 ML SYRINGE SC SCH ×2 (07:35→19:40)
[2021-08-22] MEDS ORDERED: Amiodarone 450 MG in Dextrose 5% in Water 250 ML IVPB SCH (09:47)
[2021-08-22] MEDS ORDERED: Furosemide 20 MG/2 ML VIAL SLOW IVP SCH (10:00)
[2021-08-22 12:00] VITALS: TEMP 98.6
[2021-08-22] MEDS ORDERED: Lorazepam 2 MG/ML VIAL SLOW IVP PRN (12:41)
[2021-08-22] MEDS ORDERED: Morphine 2 MG/ML VIAL SLOW IVP PRN (12:42)
[2021-08-22] MEDS ORDERED: Morphine 4 MG/ML VIAL ONE (12:54)
[2021-08-22] MEDS ORDERED: Morphine 4 MG/ML VIAL SLOW IVP PRN (12:54)
[2021-08-22 13:44] VITALS: BMI 32.0
[2021-08-22] MEDS ORDERED: AA 4.25 %/CALCIUM/LYTES/D5W 2,000 ML IV SCH (14:08)
[2021-08-22] MEDS: Morphine 4 MG/ML VIAL SLOW IVP PRN ×3 (16:32→22:46)
[2021-08-22] MEDS ORDERED: Morphine CADD 100 ML IVPB PRN ×2 (18:00→18:41)
== END 2021-08-22 23:06 | disposition expired | DRG 870 ==
LOC: ERS 15:44 → CCU 16:16 → IMCU/EMU 08-19 11:22
PROVIDERS: ADMIT Internal Medicine; ATTEND Internal Medicine
PROC: 5A1955Z Respiratory Ventilation, Greater than 96 Consecutive Hours (ICD-10-PCS; principal; 2021-08-01)
PROC: 3E033XZ Introduction of Vasopressor into Peripheral Vein, Percutaneous Approach (ICD-10-PCS; 2021-08-01)
PROC: 0D9670Z Drainage of Stomach with Drainage Device, Via Natural or Artificial Opening (ICD-10-PCS; 2021-08-01)
PROC: 0BH17EZ Insertion of Endotracheal Airway into Trachea, Via Natural or Artificial Opening (ICD-10-PCS; 2021-08-01)
PROC: 8E0ZXY6 Isolation (ICD-10-PCS; 2021-08-01)
PROC: 02HV33Z Insertion of Infusion Device into Superior Vena Cava, Percutaneous Approach (ICD-10-PCS; 2021-08-01)
PROC: B5181ZA Fluoroscopy of Superior Vena Cava using Low Osmolar Contrast, Guidance (ICD-10-PCS; 2021-08-01)
PROC: 3E03329 Introduction of Other Anti-infective into Peripheral Vein, Percutaneous Approach (ICD-10-PCS; 2021-08-01)
PROC: 3E04329 Introduction of Other Anti-infective into Central Vein, Percutaneous Approach (ICD-10-PCS; 2021-08-01)
PROC: 3E043XZ Introduction of Vasopressor into Central Vein, Percutaneous Approach (ICD-10-PCS; 2021-08-02)
PROC: 30233N1 Transfusion of Nonautologous Red Blood Cells into Peripheral Vein, Percutaneous Approach (ICD-10-PCS; 2021-08-14)
PROC: 5A0945A Assistance with Respiratory Ventilation, 24-96 Consecutive Hours, High Flow/Velocity Cannula (ICD-10-PCS; 2021-08-18)
PROC: 3E0336Z Introduction of Nutritional Substance into Peripheral Vein, Percutaneous Approach (ICD-10-PCS; 2021-08-20)
PROC: 5A09357 Assistance with Respiratory Ventilation, Less than 24 Consecutive Hours, Continuous Positive Airway Pressure (ICD-10-PCS; 2021-08-22)
DX: A41.89 Other specified sepsis (principal); U07.1 COVID-19; J12.82 Pneumonia due to coronavirus disease 2019; J80 Acute respiratory distress syndrome; R65.21 Severe sepsis with septic shock; N17.9 Acute kidney failure, unspecified; E87.0 Hyperosmolality and hypernatremia; J93.9 Pneumothorax, unspecified; E87.4 Mixed disorder of acid-base balance; I50.30 Unspecified diastolic (congestive) heart failure; Z66 Do not resuscitate; Z51.5 Encounter for palliative care; R13.10 Dysphagia, unspecified; E03.9 Hypothyroidism, unspecified; K21.9 Gastro-esophageal reflux disease without esophagitis; E86.9 Volume depletion, unspecified; E87.5 Hyperkalemia; N18.30 Chronic kidney disease, stage 3 unspecified; D63.1 Anemia in chronic kidney disease; E11.22 Type 2 diabetes mellitus with diabetic chronic kidney disease; F10.10 Alcohol abuse, uncomplicated; F17.210 Nicotine dependence, cigarettes, uncomplicated; F41.9 Anxiety disorder, unspecified; R57.1 Hypovolemic shock; I49.5 Sick sinus syndrome; E83.42 Hypomagnesemia; E83.51 Hypocalcemia; E87.8 Other disorders of electrolyte and fluid balance, not elsewhere classified; E11.65 Type 2 diabetes mellitus with hyperglycemia; I48.0 Paroxysmal atrial fibrillation; E87.6 Hypokalemia; Z78.1 Physical restraint status; Z79.4 Long term (current) use of insulin; Z79.899 Other long term (current) drug therapy; Z79.890 Hormone replacement therapy
CPT/HCPCS: 31500; 36415; 36416; 36430; 36556; 36600; 36680; 51702; 71045; 80048; 80053; 80202; 81003; 81015; 82553; 82607; 82746; 82805; 83605; 83735; 83880; 84100; 84443; 84484; 85007; 85014; 85018; 85025; 85027; 85049; 85379; 85652; 85730; 86140; 86850; 86900; 86901; 87040; 87086; 93005; 93010; 94002; 94003; 94660; 96365; 96366; 96368; 96374; 96375; A4217; C9113; J0282; J0692; J1100; J1120; J1160; J1250; J1644; J1650; J1815; J1940; J2060; J2250; J2270; J2543; J2704; J3010; J3370; J3475; J3480; J3490; J7030; J7050; J7070; P9016; U0003; U0005